=== PATIENT | female | born 1945 | race Caucasian/White ===

== ENCOUNTER → 2018-03-31 | Outpatient (CLI) | payer OTHER ==
[~2018-03-31] MED LIST: ALEVE220 MG PO; CALCIUM + VIT1 EACH PO; EXEMESTANE25 MG PO; FOSAMAX 70 MG T70 M1 PO; MULTIVITAMINS1 EAC7 PO; PRILOSEC40 MG PO; VITAMIN D31000 UNI2 PO
== END ==
LOC: M.ULTRA 08:58
DX: E01.0 Iodine-deficiency related diffuse (endemic) goiter (principal); E78.5 Hyperlipidemia, unspecified; K21.9 Gastro-esophageal reflux disease without esophagitis; G43.909 Migraine, unspecified, not intractable, without status migrainosus

== ENCOUNTER → 2018-04-09 | Outpatient (CLI) | payer OTHER | LOC: M.ULTRA 07:07 | DX: I65.23 Occlusion and stenosis of bilateral carotid arteries (principal); R22.1 Localized swelling, mass and lump, neck ==

== ENCOUNTER → 2018-05-08 | Outpatient (CLI) | payer OTHER | LOC: M.LAB 09:46 → M.CT 11:00 | PROVIDERS: Family Medicine | DX: R22.1 Localized swelling, mass and lump, neck (principal); E78.5 Hyperlipidemia, unspecified; K21.9 Gastro-esophageal reflux disease without esophagitis; G43.909 Migraine, unspecified, not intractable, without status migrainosus; Z85.3 Personal history of malignant neoplasm of breast; Z87.891 Personal history of nicotine dependence ==

== ENCOUNTER → 2019-05-20 | Outpatient (CLI) | payer OTHER | LOC: M.ULTRA 11:00 | DX: I65.23 Occlusion and stenosis of bilateral carotid arteries (principal) ==

== ENCOUNTER → 2020-01-25 | Outpatient (CLI) | payer OTHER | LOC: M.MRI 13:20 | PROVIDERS: ATTEND Family Medicine | DX: I67.82 Cerebral ischemia (principal); Z85.3 Personal history of malignant neoplasm of breast ==

== ENCOUNTER → 2020-09-12 | Outpatient (CLI) | payer OTHER | LOC: M.ULTRA 12:34 | PROVIDERS: ATTEND Family Medicine | DX: E78.5 Hyperlipidemia, unspecified (principal) ==